=== PATIENT | female | born 1995 | race Hispanic/Latino ===

== ENCOUNTER 2019-08-30 10:43 | Emergency (ER) | payer SELFPAY ==
[~2019-08-30] VITALS: Ht 157.5 cm; Wt 101.6 kg
[~2019-08-30 10:43] MED LIST: LEVAQUIN500 MG PO; ULTRAM50 MG PO
[2019-08-30] MEDS ORDERED: CEFDINIR300 MG PO (11:15)
[2019-08-30] MEDS ORDERED: DIFLUCAN100 MG PO (11:15)
--- NOTE | 2019-08-30 11:17 | Emergency Department Note ---
History of Present Illnes History of Present Illness Chief Complaint: Abdominal Complaints History of Present Illness This is a 23 year old female hx ALL in remission ( 4th grade) c/o smelly urine and bladder discomfort for 1 month, not getting better with OTC tx. She has no dysuria no f/c, no n/v not . Historian: Patient Arrival Mode: Car [employer] Rep Required: No Radiation: non-radiation Severity: mild Onset quality: gradual Duration (how long): month(s) (1 month) Progression: waxing and waning Context: other (none) Relieving factors: none Exacerbating factors: none Associated symptoms: denies other symptoms Treatments prior to arrival: other (OTC, Azo) Past Medical/Family History Physician Review I have reviewed the patient's past medical and family history. Any updates have been documented here. Past Medical History Recent Fever: No Clinical Suspicion of Infectio: No Other Medical History: ALL LEUKEMIA. PILONIDAL CYST Other Surgery: PILONIDAL CYST DRAINED/THEN REMOVED Social History Smoking Cessation: Never Smoker Alcohol Use: None Any Illegal Drug Use: No TB Exposure/Symptoms: No Physically hurt or threatened: No Family History Family history of heart diseas: No Other Last Tetanus: UTD Any Pre-Existing Lines (PICC,: No Review of Systems Review of Systems Constitutional: no symptoms EENTM: no symptoms Cardiovascular: no symptoms Respiratory: no symptoms Gastrointestinal: no symptoms Genitourinary: as per HPI, other (smelly urine, bladder dyscomfort) Musculoskeletal: no symptoms Neurological: no symptoms Psychological: no symptoms Endocrine: no symptoms Hematological/Lymphatic: no symptoms Review of other systems All other systems reviewed and negative. Physical Exam Related Data Allergies: Coded Allergies: No Known Allergies (Unverified , 12/09/15) Physical Exam CONSTITUTIONAL Constitutional: well-developed, well-nourished HENT HENT: normocephalic, atraumatic, oropharynx clear/moist, nose normal HENT L/R: left ext ear normal, right ext ear normal EYES Eyes: PERRL, conjunctivae normal NECK Neck: ROM normal PULMONARY Pulmonary: effort normal, breath sounds normal CARDIOVASCULAR Cardiovascular: regular rhythm, heart sounds normal, capillary refill normal, normal rate GASTROINTESTINAL Abdominal: soft, nontender, bowel sounds normal, other (obese) GENITOURINARY Genitourinary: exam deferred SKIN Skin: warm, dry MUSCULOSKELETAL Musculoskeletal: ROM normal NEUROLOGICAL Neurological: alert, oriented x 3, no gross motor or sensory deficits PSYCHOLOGICAL Psychological: mood/affect normal, judgement normal Results Laboratory Lab results reviewed: Yes Laboratory comments UA clean, upt negative Critical Care Time Subsequent provider . Clinical Decision Tools HEART Score Date Taken: August 30, 2019 Assessment & Plan Assessment & Plan Problems: (1) Cystitis Assessment & Plan since patient has UTI clinically with treat her as such even though her UA is cl ear Home Meds Active Scripts Fluconazole (DIFLUCAN) 100 Mg Tablet, 1 TAB PO DAILY for 3 Days Prov:RASHAWN BARRIGA MD 08/30/19 Cefdinir (OMNICEF) 300 Mg Capsule, 300 MG PO BID for 5 Days, #10 CAP Prov:RASHAWN BARRIGA MD 08/30/19 Discontinued Reported Medications Levofloxacin (LEVAQUIN) 500 Mg Tablet, 500 MG PO DAILY, #10 TAB 08/17/15 Tramadol Hcl (ULTRAM) 50 Mg Tablet, 50 MG PO Q8H PRN for PAIN, #30 TAB 08/17/15 RASHAWN BARRIGA MD August 30, 2019 11:17
--- NOTE | 2019-08-31 18:28 | Progress Note ---
DATE: 08/31/2019 Cardiology progress note SUBJECTIVE: The patient denies chest pain or shortness of breath. OBJECTIVE: VITAL SIGNS: Temperature 97.8 degrees, pulse 51, respiratory rate 18, blood pressure 104/50, and oxygen saturation 96% on room air. GENERAL: An elderly woman, in no acute distress. Awake and alert. LUNGS: Clear to auscultation bilaterally. No wheezes or crackles. CARDIOVASCULAR: Normal rate. Regular rhythm. Systolic murmur. Normal S1, S2. ABDOMEN: Soft, nontender. EXTREMITIES: No edema. CARDIAC MEDICATIONS: Xarelto 15 mg p.o. daily, metoprolol succinate 25 mg p.o. daily, levothyroxine 50 mcg p.o. daily, simvastatin 40 mg p.o. at bedtime, Zetia 10 mg p.o. daily, valsartan 160 mg p.o. daily, and apresoline 5 mg p.o. at bedtime. LABORATORY DATA: WBC 6.78, hemoglobin 8.8, hematocrit 36.9, and platelets 332. Sodium 128, potassium 4.6, chloride 99, CO2 of 21, BUN 25, and creatinine 1.42. Troponin 0.004. TELEMETRY: Personally reviewed and interpreted revealing normal sinus rhythm. IMPRESSION: 1. Hyponatremia. 2. Elevated CK and CK-MB. 3. Atrial fibrillation, paroxysmal. 4. Hypertension. 5. Hyperlipidemia. 6. Diabetes mellitus. RECOMMENDATIONS: The patient ruled out for myocardial infarction with serial cardiac biomarkers, monitor the patient on telemetry. Continue current cardiac medications including Xarelto for CVA prophylaxis. Blood pressure is acceptable for her age. The patient's recent cardiac evaluation was reviewed. She had a stress test with normal myocardial perfusion in June of this year and echocardiogram demonstrates preserved LVEF. Her BNP is not elevated. Monitor volume status closely with administration of sodium chloride. Management of hyponatremia per Nephrology. No further cardiac evaluation indicated at this time. Thank you for this consult. We will continue to follow. Anita Phoenix MD ABS/MODL /[id number]
== END 2019-08-30 11:29 | disposition home or self-care (01) ==
LOC: FSED 10:43
DX: R10.30 Lower abdominal pain, unspecified (principal); N30.90 Cystitis, unspecified without hematuria
CPT/HCPCS: 81003; 81025; 99283